=== PATIENT | female | born 1990 | race Caucasian/White ===

== ENCOUNTER 2016-08-08 13:43 | Emergency (ER) | payer OTHER ==
[~2016-08-08 13:43] MED LIST: AMOXICILLIN875 MG PO; BACTRIM DS TABL1 TA1 PO; ELIMITE60 GM TOP; MACROBID100 MG PO; METHADONE HCL10 MG; NEPTAZANE50 M1 DOB; NO MEDICATIONS; PRENATAL1 TA1 PO; SILVADENE TOP; VOLTAREN75 MG PO
[2016-08-08] MEDS ORDERED: METHADONE PO (13:45)
== END 2016-08-08 14:46 | disposition home or self-care (01) ==
LOC: SED 13:43
DX: S13.9XXA Sprain of joints and ligaments of unspecified parts of neck, initial encounter (principal); S80.12XA Contusion of left lower leg, initial encounter; S60.511A Abrasion of right hand, initial encounter; F17.210 Nicotine dependence, cigarettes, uncomplicated; Z79.899 Other long term (current) drug therapy; S80.811A Abrasion, right lower leg, initial encounter; V43.52XA Car driver injured in collision with other type car in traffic accident, initial encounter
CPT/HCPCS: 90471; 90715; 99283